=== PATIENT | female | born 1990 | race Caucasian/White ===

== ENCOUNTER 2016-09-14 11:25 | Emergency (ER) | payer SELFPAY ==
[2016-09-14 11:26] VITALS: BMI 34.8
[2016-09-14 11:53] VITALS: BP 127/85; PULSE 118; RESP 18; TEMP 99.9; O2SAT 98
[2016-09-14] MEDS ORDERED: Amoxicillin-Clav 875-125 mg Tab PO STA (12:21)
--- NOTE | 2016-09-14 12:23 | C.PDOC ---
History Of Present Illness 26 yr old female presents to the ER for evaluation of right breast pain associated with low grade fever and chills gradually developing over the past 3 -4 days. patient is post - 6 month and is currently breast feeding. Patient denies headache, dizziness, chest pain, SOB, dyspnea, diaphoresis, palpitation, nausea, vomiting, abdominal pain,rash. AMbulate to Ed for evaluation, not in any apparent distress. Time Seen by Provider: 09/14/16 11:59 Chief Complaint (Nursing): Flu-like Symptoms History Per: Patient History/Exam Limitations: no limitations Onset/Duration Of Symptoms: Gradual (3-4 days ) Current Symptoms Are (Timing): Still Present Sick Contacts (Context): None Past Medical History Reviewed: Historical Data, Nursing Documentation, Vital Signs Vital Signs: Last Vital Signs Temp 99.9 F H 09/14/16 11:40 Pulse 118 H 09/14/16 11:40 Resp 18 09/14/16 11:40 BP 127/85 09/14/16 11:40 Pulse Ox 98 09/14/16 12:33 - [facility] [facility] Procedures DELIVERY OF PRODUCTS OF CONCEPTION, EXTERNAL APPROACH (07/04/15) DRAINAGE OF AMNIOTIC FL, THERAP FROM POC, VIA OPENING (07/04/15) REPAIR PERINEUM MUSCLE, OPEN APPROACH (07/04/15) Family History: States: No Known Family Hx - Social History Hx Alcohol Use: No Hx Substance Use: No - Immunization History Hx Tetanus Toxoid Vaccination: No Hx Influenza Vaccination: No Hx Pneumococcal Vaccination: No Review Of Systems Except As Marked, All Systems Reviewed And Found Negative. Constitutional: Positive for: Fever (Low grade ), Chills Cardiovascular: Negative for: Chest Pain Respiratory: Negative for: Shortness of Breath Gastrointestinal: Negative for: Nausea, Vomiting, Abdominal Pain Skin: Positive for: Other ((+) Right breast pain ) Neurological: Negative for: Weakness, Numbness Physical Exam - Physical Exam Appears: Well, Non-toxic, No Acute Distress Skin: Normal Color, Warm Eye(s): bilateral: PERRL Ear(s): Bilateral: Normal Nose: Normal, No Discharge Oral Mucosa: Moist, No Drooling Tongue: Normal Appearing Lips: Normal Appearing Throat: Normal, No Erythema, No Exudate, No Drooling Neck: Trachea Midline, Supple Cardiovascular: Rhythm Regular, Other (Right breast: tender mass at 10 o'clock with mild skin erythema. No nipple changes.) Respiratory: No Stridor, No Wheezing Gastrointestinal/Abdominal: Soft, No Tenderness Back: No CVA Tenderness Extremity: No Pedal Edema Neurological/Psych: Oriented x3, Normal Speech ED Course And Treatment O2 Sat by Pulse Oximetry: 98 Pulse Ox Interpretation: Normal Progress Note: On re-eavuation, pt is afebrile, hemodynamicaly stable. NOn- toxic. Tolerate Po well in ED. PulseOx 98% RA. ENT: no acute findings. Neck: (-) meningeal sign. Lungs: CTA B/L, BS equal B/L. Right breast: exam c/w early mastitis. Abd: benign. Pt advised. ref. to f/U with PMD and OB in 2-3 days for re-evaluation. Return to ED if any worsening or new changes. Medical Decision Making Medical Decision Making: PLAN: * Augmentin PO * Motrin PO Disposition Counseled Patient/Family Regarding: Diagnosis, Need For Followup, Rx Given - Disposition Referrals: [facility] [Outside] [facility] [Outside] Disposition: HOME/ ROUTINE Disposition Time: 12:25 Condition: STABLE Additional Instructions: WARM COMPRESSES TAKE MEDICATION PRESCRIBED EMPTY BREAST FULLY AFTER BREAST FEEDING FOLLOW UP WITH OPENING MACHINE CLEANER AND PMD IN 2-3 DAYS FOR RE-EVALUATION. RETURN TO ED IF ANY WORSENING OR NEW CHANGES. Prescriptions: Amoxicillin/Clavulanate [Augmentin 875 MG-125 MG] 1 tab PO BID #14 tab Ibuprofen [Motrin Tab] 600 mg PO Q6 #20 tab Instructions: Mastitis (ED) Print Language: ICELANDIC - Clinical Impression Clinical Impression: Mastitis - PA / THUMB SEWER / Resident Statement MD/DO has reviewed & agrees with the documentation as recorded. - Scribe Statement The provider has reviewed the documentation as recorded by the Scribe Daina Carlton All medical record entries made by the Yaya were at my direction and personally dictated by me. I have reviewed the chart and agree that the record accurately reflects my personal performance of the history, physical exam, medical decision making, and the department course for this patient. I have also personally directed, reviewed, and agree with the discharge instructions and disposition.
[2016-09-14] MEDS ORDERED: Amoxicillin-Clav 875-125 mg Tab PO ONE (12:27)
== END 2016-09-14 12:39 | disposition home or self-care (01) ==
LOC: C.ER 11:25
DX: N61.0 Mastitis without abscess (principal)